=== PATIENT | female | born 1980 | race Caucasian/White ===

== ENCOUNTER 2017-05-11 11:44 | Emergency (ER) | payer MEDICAID ==
[2017-05-11] MEDS ORDERED: OXYCODONE/APAP 5/325 TAB PO ONE (12:08)
[2017-05-11] MEDS ORDERED: AMOXICILLIN/CLAVULANATE POT 875/125 MG TAB PO ONE (12:08)
--- NOTE | 2017-05-11 12:12 | EDPHY ---
H & P Time Seen by Provider: 05/11/17 11:55 HPI/ROS: CHIEF COMPLAINT: Facial swelling, toothache HISTORY OF PRESENT ILLNESS: 36-year-old female who developed swelling on the right side of her face on April 25. She was seen at a urgent care in [place], where she was camping at the time, and was placed on Augmentin for 10 days. Swelling initially worsened but then after 3 days of antibiotics began to recede. She finished her antibiotics 6 days ago. She was doing well until last night when her upper tooth began to bother her again. This morning she woke with swelling once again. No fevers. Does report pain with eating. Patient has been concerned regarding having the tooth extracted because she states she does not know if she wants to do an implant or a bridge. REVIEW OF SYSTEMS: Aside from elements discussed in the HPI, a comprehensive 10-point review of systems was reviewed and is negative. PAST MEDICAL HISTORY: . SOCIAL HISTORY: Here with her mother. GENERAL APPEARANCE: Pleasant, alert, obvious facial swelling on the right side.. FOCUSED EXAM OF HEENT: Obvious swelling on the right side of the patient's face. No erythema. No crepitus. Pupils are equal round reactive to light. No conjunctival injection or discharge. Swelling does not involve the eye. Some discomfort with opening the mouth. Tooth number 4 is cracked, mild erythema at the gum line but no definitive abscess. Tenderness to percussion. Remainder of the teeth appear normal. No adenopathy. Smoking Status: Current every day smoker Constitutional: Initial Vital Signs Temperature (C) 37 C 05/11/17 11:48 Heart Rate 78 05/11/17 11:48 Respiratory Rate 16 05/11/17 11:48 Blood Pressure 142/89 H 05/11/17 11:48 O2 Sat (%) 99 05/11/17 11:48 Allergies/Adverse Reactions: No Known Allergies Allergy (Unverified 05/11/17 11:50) Home Medications: Medication Instructions Recorded Amoxicillin/Clavulanate Pot 875 mg PO BID #14 tab 05/11/17 [Augmentin 875Mg] oxyCODONE/APAP 5/325 [Percocet 1 tab PO QID PRN #12 tab 05/11/17 5/325 (*)] MDM/Departure - MDM Medications Given: Discontinued Medications Amoxicillin/Clavulanate Potassium (Augmentin 875mg) 875 mg PO EDNOW ONE PRN Reason: Protocol Stop: 05/11/17 12:09 Last Admin: 05/11/17 12:17 Dose: 875 mg Oxycodone/Acetaminophen (Percocet 5/325) 1 tab PO EDNOW ONE Stop: 05/11/17 12:09 Last Admin: 05/11/17 12:17 Dose: 1 tab ED Course/Re-evaluation: Patient was placed on Augmentin 040221 twice daily for 7 days. She was given a prescription of Percocet per her request. She was advised regarding dangers of opiate medications. She has no personal history of addictive tendencies or mental health disease. We discussed the importance of having the tooth extracted you if the plan for replacement has not been definitively made. Patient will contact her primary dentist or [facility]. Differential Diagnosis: Differential diagnosis considered included but not limited to dental caries, dental abscess, deep space abscess, cellulitis, oral abscess, gingivitis. - Depart Disposition: Home, Routine, Self-Care Clinical Impression: Dental abscess, Toothache, Dental caries Condition: Good Instructions: Dental Abscess (ED), Dental Caries (ED) Additional Instructions: Please take antibiotics as directed. Augmentin 490116 by mouth 2 times a day for 7 days. For pain control, I recommend Ibuprofen (Motrin, Advil) or Naproxen Sodium (Aleve) for pain and anti-inflammatory effects. You may take either one, but do not take both. Your dose is: Ibuprofen 600 mg every 6-8 hours with food. OR Naproxen Sodium (Aleve) 220 mg every 12 hours. If regular doses of nonsteroidal anti-inflammatories are not controlling the pain, you may use oxycodone. Please use this with extreme caution. Salt water gargles may also be helpful. Ice to the face may also be helpful. Please follow up with a dentist as soon as possible to have the tooth extracted. Prescriptions: Amoxicillin/Clavulanate Pot [Augmentin 875Mg] 875 mg PO BID #14 tab oxyCODONE/APAP 5/325 [Percocet 5/325 (*)] 1 tab PO QID PRN #12 tab PRN Reason: Pain Referrals: NONE *PRIMARY CARE P,. [Primary Care Provider] - As per Instructions [facility] [Outside] - As per Instructions [facility] [Outside] - As per Instructions
[2017-05-11 12:23] VITALS: BP 142/89; PULSE 78; RESP 16; TEMP 98.6; O2SAT 99
== END 2017-05-11 12:22 | disposition home or self-care (01) ==
LOC: CED 11:44
DX: K08.89 Other specified disorders of teeth and supporting structures (principal); K04.7 Periapical abscess without sinus; F17.200 Nicotine dependence, unspecified, uncomplicated